=== PATIENT | male | born 1960 | race Caucasian/White ===

== ENCOUNTER 2022-07-13 17:52 | Inpatient (IN) | payer MEDICARE, SELFPAY ==
--- NOTE | ~2022-07-13 | US_ITS ---
EXAMINATION: US venous doppler UE LT DATE: 07/13/2022 20:32 INDICATION: Left arm swelling and pain TECHNIQUE: Grayscale ultrasound images without and with compression and Doppler ultrasound images of the left upper extremity veins were obtained. COMPARISON: None. FINDINGS: The visualized portions of the left internal jugular vein, subclavian vein, axillary vein, brachial v eins, basilic vein, cephalic vein, radial vein, and ulnar vein are patent. IMPRESSION: 1. No deep venous thrombosis. Reviewed, dictated and finalized at location K.
--- NOTE | ~2022-07-13 | XR_ITS ---
Clinical Indication: Tobacco dependence PA and lateral views of the chest: Comparison: None Findings: The lungs are clear, without evidence of focal consolidation or pleural effusion. Cardiome diastinal silhouette is within normal limits. Bones and soft tissues are unremarkable. Impression: Normal chest. Reviewed, dictated and finalized at location . Impression: Normal chest.
[2022-07-13 17:57] VITALS: BP 195/102; PULSE 90; RESP 18; TEMP 36.3; O2SAT 97
[2022-07-13 20:35] LABS: Basophils Percent Auto 0.3 % (0.2-1.2); Eosinophils Absolute Auto 0.2 K/mm3 (0-0.3); Eosinophils Percent Auto 1.9 % (0-4.4); Hematocrit 56.8 % (42.0-52.0); Hemoglobin 18.2 g/dL (14.0-18.0); Immature Granulocyte Absolute 0.06 K/mm3 (0.00-0.031); Immature Granulocyte Percent A 0.6 % (0-0.5); Lymphocytes Absolute Auto 2.31 K/mm3 (0.9-3.2); Lymphocytes Percent Auto 24.2 % (18.3-44.2); Mean Corpuscular Hemoglobin 30.2 pg (26-34); Mean Corpuscular Volume 94.2 fl (80-100); Mean Platelet Volume 10.4 fl (7.4-10.4); Monocytes Absolute Auto 0.7 K/mm3 (0.1-0.6); Monocytes Percent Auto 7.3 % (2.6-8.5); Neutrophils Absolute Auto 6.3 K/mm3 (1.3-6.7); Neutrophils Percent Auto 65.7 % (45.5-73.1); Platelet Count Result 257 k/mm3 (150-375); Red Blood Count 6.03 M/mm3 (4.6-6.20); Red Cell Distribution Width 14.4 % (11.5-14.5); White Blood Count 9.5 K/mm3 (4.5-10.0)
[2022-07-13 20:47] LABS: INR 0.9
[2022-07-13 20:48] LABS: Partial Thromboplastin Time 28.7 SECONDS (22.3-36.8)
[2022-07-13 20:50] VITALS: BP 198/115; PULSE 83; RESP 17; O2SAT 96
[2022-07-13 20:54] LABS: Alanine Aminotransferase 27 U/L (6-50); Albumin Level 3.9 g/dL (3.5-5.1); Alkaline Phosphatase 101 U/L (38-126); Anion Gap 7 mmol/L (8-16); Aspartate Amino Transferase 25 U/L (17-59); Bilirubin,Total 1.4 mg/dL (0.2-1.3); Blood Urea Nitrogen 10 mg/dL (9-20); Calcium 8.6 mg/dL (8.4-10.2); Carbon Dioxide 33 mmol/L (22-30); Chloride 96 mmol/L (98-107); Estimated CRCL calculation 82 ml/min; Estimated Glomerular Filt Rate > 60; Glucose 141 mg/dL (65-110); Potassium 3.6 mmol/L (3.4-5.0); Sodium 136 mmol/L (137-145)
--- NOTE | 2022-07-13 21:54 | ED.GENADULT ---
HPI - General Adult General Chief complaint: Extremity Problem,Nontraumatic Stated complaint: left hand swelling Time Seen by Provider: 07/13/22 20:58 History of Present Illness HPI narrative: Patient is a 62-year-old gentleman who presents emergency department with chief complaint of pain redness to the left upper extremity. Patient reports he is a diabetic and reports that he had a procedure in [facility] to remove a lesion in his left arm and then also had a lesion removed from his nose. Patient states that it was done by a plastic surgeon there and reports that his nose has opened up and has purulent drainage from it patient also noticed that his hand has become more swollen and has become red and tender to touch. Patient denies fluctuance denies discrete abscess Related Data Home Medications Medication Instructions Recorded Confirmed metformin 07/13/22 Allergies Allergy/AdvReac Type Severity Reaction Status Date / Time No Known Allergies Allergy Verified 07/13/22 22:08 Review of Systems Review of Systems: A 10 system review of systems was completed on the patient and is negative except for what is stated in the HPI. Nursing and ancillary documentation was reviewed. Exam Narrative: GENERAL: Well-appearing, well-nourished, and in no acute distress. HEAD: Normocephalic, atraumatic. EYES: PERRLA and EOMI. ENT: Nares clear, no rhinorrhea or epistaxis. Mucous membranes moist. There is a wound present on the tip of the nose that is open and has purulent drainage from NECK: Supple. CHEST: Clear to auscultation. No respiratory distress. HEART: Regular rate and rhythm. No murmur heard. Normal peripheral pulses. ABDOMEN: Soft, nontender, nondistended, normal active bowel sounds. EXTREMITIES: Normal range of motion. No edema. Left upper extremity there is redness and swelling of the dorsal aspect of the right forearm from the level of the wrist to mid forearm. It is tender to touch there is no fluctuance there is no crepitance SKIN: Warm, dry, no rash. NEURO: No focal deficits. Alert and oriented x3. PSYCH: Normal mood and affect. Course Vital Signs Vital signs: Vital Signs Temperature 36.3 C L 07/13/22 17:57 Pulse Rate 90 07/13/22 17:57 Respiratory Rate 18 07/13/22 17:57 Blood Pressure 195/102 H 07/13/22 17:57 Pulse Oximetry 97 05/08/23 17:57 Oxygen Delivery Room Air 07/13/22 17:57 Temperature 36.3 C L 07/13/22 17:57 Pulse Rate 83 07/13/22 20:50 Respiratory Rate 17 07/13/22 20:50 Blood Pressure 198/115 H 07/13/22 20:50 Pulse Oximetry 96 07/13/22 20:50 Oxygen Delivery Room Air 07/13/22 20:50 Medical Decision Making MDM Narrative Medical decision making narrative: Differential diagnosis includes cellulitis, DVT. Laboratory studies were obtained which showed a normal white blood cell count patient hemoglobin was elevated at 18. Electrolytes showed a glucose of 141 total bilirubin is 1.4 Venous duplex of left upper extremity showed no evidence of DVT. Patient is showing signs of infection of the wound on his nose that is dehisced and also there is redness and tenderness to palpation in the dorsum of the left forearm. This is most likely cellulitis Vital Signs Vital Signs: Vital Signs Temperature 36.3 C L 07/13/22 17:57 Pulse Rate 90 07/13/22 17:57 Respiratory Rate 18 07/13/22 17:57 Blood Pressure 195/102 H 07/13/22 17:57 Pulse Oximetry 97 07/13/22 17:57 Oxygen Delivery Room Air 07/13/22 17:57 Temperature 36.3 C L 07/13/22 17:57 Pulse Rate 83 07/13/22 20:50 Respiratory Rate 17 07/13/22 20:50 Blood Pressure 198/115 H 07/13/22 20:50 Pulse Oximetry 96 07/13/22 20:50 Oxygen Delivery Room Air 07/13/22 20:50 Lab Data 07/13/22 20:28 07/13/22 20:28 Labs: Lab Results 07/13/22 Range/Units 20:28 WBC 9.5 (4.5-10.0) K/mm3 RBC 6.03 (4.6-6.20) M/mm3 Hgb 1
[2022-07-13] MEDS: MORPHINE SULFATE (*CRX) 4 MG/ML INJ 2 MG IV PUSH (22:22)
[2022-07-13] MEDS: PIPERACILLN/TAZ 3.375GM/NS50ML 3.375 GM/50 ML BAG IVPB (22:55)
[2022-07-13 22:57] LABS: Lactic Acid Reflex 1.1 mmol/L (0.7-2.0)
[2022-07-13 23:01] VITALS: BP 178/95; PULSE 79; RESP 18; O2SAT 95
--- NOTE | 2022-07-13 23:18 | PM.IMHP ---
H&P: HPI History of Present Illness Date/Time: 07/13/22 23:18 Chief Complaint: left hand redness Narrative: This is a 62-year-old male with past medical history significant for hypertension, diabetes mellitus, tobacco dependence, patient smokes 2 packs of cigarettes daily. patient presents to the emergency room due to left upper extremity redness, warmth, tenderness, for 2-3 days duration recently had a skin lesion removed from the hand dorsum, had lesion removed from the nose as well and shows with wound dehiscence of the nose with purulent discharge. Patient denies any fevers, rigors, chills, nausea, vomiting, diarrhea, shortness of breath, cough, sputum production. [place] staying with his son who is helping with some work. preliminary workup was significant for venous Doppler of left upper extremity was reported as: EXAMINATION: US venous doppler UE DATE: 07/13/2022 20:32 INDICATION: Left arm swelling and pain TECHNIQUE: Grayscale ultrasound images without and with compression and Doppler ultrasound images of the left upper extremity veins were obtained. COMPARISON: None. FINDINGS: The visualized portions of the left internal jugular vein, subclavian vein, axillary vein, brachial veins, basilic vein, cephalic vein, radial vein, and ulnar vein are patent. IMPRESSION: 1.? No deep venous thrombosis. patient has been admitted for further evaluation management and treatment. Review of Systems Review of Systems: Left upper extremity redness, tenderness, nose wound dehiscence and purulent discharge Constitutional: Constitutional: Denies chills, Denies daytime sleepiness, Denies fever(s), Denies frequent falls, Denies night sweats and Denies poor appetite Eyes: Eyes: Denies change in vision ENT: Denies dysphagia, Denies odynophagia and Reports other ( nose wound dehiscence) Cardiovascular: Cardiovascular: Denies chest pain and Denies radiating jaw, neck or arm pain Respiratory: Respiratory: Denies chest congestion, Denies cough and Denies excessive phlegm production Gastrointestinal: Gastrointestinal: Denies abdominal pain, Denies dyspepsia, Denies heartburn, Denies diarrhea, Denies nausea and Denies vomiting Genitourinary: Genitourinary: Denies dysuria Musculoskeletal: Comments: left upper extremity swelling warmth tenderness Integumentary/Breasts: Skin/Breast: Reports erythema ( left upper extremity), Reports skin pain, Reports skin swelling and Reports wounds ( nose wound dehiscence) Neurologic: Denies focal weakness and Denies Sensory deficit (Neuro) Psychiatric: Psychiatric: Reports no additional psychiatric complaints and Reports as per HPI Endocrine: Endocrine: Denies cold intolerance, Denies flushing, Denies heat intolerance, Denies polyphagia, Denies polydipsia and Denies palpitations Hematologic/Lymphatic: Hematologic/Lymphatic: Reports no additional hematologic/lymphatic complaints and Reports as per HPI Allergic/Immunologic: Allergic/Immunologic: Reports no additional allergic/immunologic complaints and Reports as per HPI Meds Home Medications and Allergies Home Medications Medication Instructions Recorded Confirmed Type metformin 07/13/22 History amlodipine 5 mg tablet 5 mg PO DAILY 07/14/22 07/14/22 History Allergies Allergy/AdvReac Type Severity Reaction Status Date / Time No Known Allergies Allergy Verified 07/13/22 22:08 Vital Signs Vital Signs - 24 hr 07/13/22 17:57 07/13/22 20:50 07/13/22 23:01 Temperature 97.3 F L Pulse Rate 90 83 79 Respiratory Rate 18 17 18 Blood Pressure 195/102 H 198/115 H 178/95 H Pulse Oximetry 97 96 95 Oxygen Delivery Room Air Room Air Exam Narrative: patient is laying in a stretcher Const: General: comfortable, no acute distress, well developed, alert, awake and average body habitus Nutritional Appearance: average body habitus Orientation/consciousness: patient oriented
[2022-07-13 23:43] LABS: Glucose Point of Care 179 mg/dl (65-105)
[2022-07-14] VITALS (7 sets, daily range): BP systolic 151–192; BP diastolic 85–108; PULSE 70–81; RESP 16–20; TEMP 35.7–36.6; O2SAT 95–99
[2022-07-14] MEDS: amLODIPine BESYLATE 5 MG TABLET PO ×2 (00:50→08:51)
--- NOTE | 2022-07-14 01:02 | ADMGEN ---
This patient, Doroteo Merchant, was admitted to [facility] Surg Room 327-01. Patient/family oriented to hospital policies and general routines including ID bracelet, bed and alarms, visiting hours, pain management, procedures, bathroom and other care routines, personal items, smoking policy, room service/diet, and visiting hours. Information on how to activate the Rapid Response Team has been discussed. Patient/Family are encouraged to report perceived risks to care and to ask questions if they do not understand what they are told or what they should do.
[2022-07-14] MEDS: MORPHINE SULFATE (*CRX) 4 MG/ML INJ 2 MG IV PUSH ×2 (01:25→05:08)
[2022-07-14] MEDS: hydrALAZINE HCL 20 MG/ML VIAL 10 MG IV PUSH ×2 (02:36→21:19)
[2022-07-14] MEDS: PIPERACILLN/TAZ 3.375GM/NS50ML 3.375 GM/50 ML BAG IVPB ×4 (05:09→23:22)
[2022-07-14] MEDS: lisinopriL 20 MG TABLET 40 MG PO (05:09)
--- NOTE | 2022-07-14 06:17 | PC.NURSE ---
Pt has had high blood pressures since arrival to the floor from ER. Multiple medication administrations with no improvement. Latest medication administration at 0509, Lisinopril [address] Lora. Rechecked BP one hour later and it remained high at 192/101. Dr Lora was notified of newest blood pressure and questioned about new orders. No new orders at this time. Dr Lora requests to wait an additional hour and recheck blood pressure then. Will pass this information on to day shift RN in report.
[2022-07-14 06:39] LABS: Estimated CRCL calculation 99 ml/min; Estimated Glomerular Filt Rate > 60
[2022-07-14 07:31] LABS: Glucose Point of Care 192 mg/dl (65-105)
--- NOTE | 2022-07-14 07:43 | WPDCN ---
Assessment and Plan Assessment and plan (1) Cellulitis of nasal tip: Code(s): J34.0 - Abscess, furuncle and carbuncle of nose Status: Acute Assessment and Plan: Purulence cultured, likely gram positive organism, possible MRSA, recommend aggressive blood sugar management, gram positive/mrsa coverage iv while inpatient, mupirocin tid, large amount in each nostril and within the wound itself. Ok for diet. Will re examine this pm. No plan on closure at this time. HPI Data of Consult Date/Time: 07/14/22 07:43 Requesting Physician: Victor Hugo Lora MD Primary Care Provider: PHYSICIAN NOT ON STAFF Consult Narrative Reason for consult: Nasal infection Narrative: Doroteo Merchant is a 62 year old male s/p nasal skin cancer excision and recon last week at an OSH. Currently infected, wound dehisced. ENT consulted for further evaluation and treatment. Review of Systems Review of Systems: All systems reviewed & are unremarkable except as noted in HPI and below PMFSH Social History Social History Smoking status: Current every day smoker Tobacco type: cigarettes Lack of Transportation: No Lack of Food: Never True Current Housing: I Have Housing Concerned About Future Housing: No Difficulty Paying Gas/Electric Bills: No Difficulty Paying for Meds: No Currently Unemployed: No Education: Grade School Difficulty w/ Childcare or Family Care: No Spiritual care concerns: No Meds Home Medications and Allergies Home Medications Medication Instructions Recorded Confirmed Type metformin 07/13/22 History amlodipine 5 mg tablet 5 mg PO DAILY 07/14/22 07/14/22 History gabapentin 600 mg tablet 600 mg PO PRN PRN neuropathy 07/14/22 07/14/22 History (Neurontin) hydrochlorothiazide 25 mg tablet 25 mg PO DAILY 07/14/22 07/14/22 History Allergies Allergy/AdvReac Type Severity Reaction Status Date / Time No Known Allergies Allergy Verified 07/13/22 22:08 Vital Signs Vital Signs - 24 hr 07/13/22 17:57 07/13/22 20:50 07/13/22 23:01 Temperature 36.3 C L Pulse Rate 90 83 79 Respiratory Rate 18 17 18 Blood Pressure 195/102 H 198/115 H 178/95 H Pulse Oximetry 97 96 95 Oxygen Delivery Room Air Room Air 07/14/22 00:07 07/14/22 01:40 07/14/22 04:35 Temperature 36.6 C 36.5 C Pulse Rate 81 74 81 Respiratory Rate 17 16 20 Blood Pressure 170/93 H 187/97 H 192/96 H Pulse Oximetry 96 95 95 Oxygen Delivery 07/14/22 06:08 Temperature 36.3 C L Pulse Rate 79 Respiratory Rate 16 Blood Pressure 192/101 H Pulse Oximetry 96 Oxygen Delivery Exam Narrative: several cm dehisced wound left nasal ala and tip, almost through and through, infectious crust/debris intranasal as well. Results Labs 07/13/22 20:28 07/14/22 06:16 Labs: Short CBC 07/13/22 Range/Units 20:28 WBC 9.5 (4.5-10.0) K/mm3 Hgb 18.2 H (14.0-18.0) g/dL Hct 56.8 H (42.0-52.0) % Plt Count 257 (150-375) k/mm3 BMP 07/13/22 07/14/22 20:28 06:16 Sodium 136 L Potassium 3.6 Chloride 96 L Carbon Dioxide 33 H BUN 10 Creatinine 1.10 0.90 Glucose 141 H Calcium 8.6 Liver Function 07/13/22 Range/Units 20:28 Total Bilirubin 1.4 H (0.2-1.3) mg/dL AST 25 (17-59) U/L ALT 27 (6-50) U/L Alkaline Phosphatase 101 (38-126) U/L Albumin 3.9 (3.5-5.1) g/dL
[2022-07-14] MEDS: ENOXAPARIN 40 MG/0.4 ML SYRINGE SUB-Q (08:51)
[2022-07-14] MEDS: MUPIROCIN 2% OINT 22 GM TUBE 1 APPLIC XX ×3 (08:51→17:22)
[2022-07-14] MEDS: oxyCODONE/ACETAMINOPHEN (*CRX) 5-325 MG TABLET 1 TABLET PO ×3 (10:24→23:22)
--- NOTE | 2022-07-14 11:41 | PM.IMPN ---
Progress Note: A&P Assessment and Plan (1) Cellulitis of arm, left: Code(s): L03.114 - Cellulitis of left upper limb Status: Acute Assessment and Plan: admit to regular medical floor recent surgical procedure to remove daughter son of the hand lesion started on Zosyn and vancomycin cultures in progress (2) Dehiscence of wound of skin: Qualifiers: Encounter type: initial encounter Qualified Code(s): T81.30XA - Disruption of wound, unspecified, initial encounter Code(s): T81.30XA - Disruption of wound, unspecified, initial encounter Status: Acute Assessment and Plan: on vancomycin and Zosyn ENT consult supportive care local care (3) Diabetes: Code(s): E11.9 - Type 2 diabetes mellitus without complications Status: Acute Assessment and Plan: holding metformin insulin sliding scale as needed Accu-Cheks AC and HS carb consistent diet (4) Tobacco dependence: Code(s): F17.200 - Nicotine dependence, unspecified, uncomplicated Status: Acute Assessment and Plan: nicotine patch as needed Subjective Date/time seen: 07/14/22 11:41 Interval history: No complaints Exam Narrative: patient is laying in a stretcher Const: General: comfortable, no acute distress, well developed, alert, awake and average body habitus Nutritional Appearance: average body habitus Orientation/consciousness: patient oriented x3 HENMT: Head: normal to inspection, normocephalic and atraumatic Ears: hearing grossly normal bilaterally Face/Nose/Sinus: Abnormal external nose present nasal laceration, nasal erythema and other ( wound dehiscence purulent discharge) and normal facial exam Face and sinus: normal facial exam Eyes: General: appearance normal, both eyes and all related structures Pupils: Equal, round and reactive pupils present EOM: EOMs intact bilaterally Neck: Neck: full ROM, no lymphadenopathy and no JVD Thyroid: thyroid normal Lymphatic: no lymphadenopathy noted Resp: Effort & Inspection: normal respiratory effort and able to speak in complete sentences Auscultation: clear to auscultation bilaterally Cardio: Jugular venous distension: no JVD Rate: regular rate Rhythm: regular rhythm Heart sounds: S1 normal heart sound present and S2 normal heart sound present : General: Yes deferred Skin: General skin exam: rashes Rashes: rashes noted left distal forearm color other ( erythema) and tender Wounds: no wounds Neuro: General: patient oriented x3 and CN's II-XI intact bilaterally Cranial nerves: Yes CN's II-XII intact bilaterally and Yes Equal, round and reactive pupils present Cognition (Neuro): normal cognition Speech: normal speech Gait exam (Neuro): Normal gait present Motor exam (neuro): 5/5 motor strength present throughout Sensory Exam: No Sensory deficit (Neuro) Extrem: General: normal to inspection, full ROM, no joint enlargement and no pedal edema Left upper extremity: edema, elbow/forearm tenderness, swelling, warmth and other ( erythema) and hand tenderness, warmth and swelling Objective Data Vital Signs Vital Signs: Vital Signs - 24 hr 07/13/22 17:57 07/13/22 20:50 07/13/22 23:01 Temperature 97.3 F L Pulse Rate 90 83 79 Respiratory Rate 18 17 18 Blood Pressure 195/102 H 198/115 H 178/95 H Pulse Oximetry 97 96 95 Oxygen Delivery Room Air Room Air 07/14/22 00:07 07/14/22 01:40 07/14/22 04:35 Temperature 98 F 97.7 F Pulse Rate 81 74 81 Respiratory Rate 17 16 20 Blood Pressure 170/93 H 187/97 H 192/96 H Pulse Oximetry 96 95 95 Oxygen Delivery 07/14/22 06:08 Temperature 97.3 F L Pulse Rate 79 Respiratory Rate 16 Blood Pressure 192/101 H Pulse Oximetry 96 Oxygen Delivery Intake/Output Intake/Output: Intake & Output 07/11/22 07/12/22 07/13/22 07/14/22 23:59 23:59 23:59 23:59 Intake Total 50 572 Output Total 250 Balance 50 322 Meds/Results Medications:
[2022-07-14 11:46] LABS: Glucose Point of Care 176 mg/dl (65-105)
[2022-07-14] MEDS: hydroCHLOROthiazide 25 MG TABLET PO (12:04)
[2022-07-14 14:59] LABS: Appearance Urine Clear (Clear); Bacteria Urine None Seen /hpf; Bilirubin Urine Negative (Negative); Blood Urine Negative (Negative); Color Urine Yellow (Yellow); Glucose Urine UA Negative (Negative); Ketones Urine Negative (Negative); Leukocyte Esterase Ur Negative LEU/UL (Negative); Nitrate Urine Negative (Negative); Non Pathogenic Casts 0-2; Protein Urine 2+ mg/dL (Negative); RBC Urine 0-2 /hpf (0-2); Specific Grav Ur 1.019 (1.001-1.035); Squamous Epithelial Cell Urine None seen /hpf (Few); WBC Urine 0-5 /hpf; pH Urine 5.5 (5.0-9.0)
[2022-07-14 15:03] LABS: Add Urine Microscopic? YES
[2022-07-14 16:24] LABS: Glucose Point of Care 188 mg/dl (65-105)
[2022-07-14] MEDS: NICOTINE (*PBKC) 14 MG PATCH 1 PATCH TRANSDERM (18:43)
[2022-07-14] MEDS: MORPHINE SULFATE (*CRX) 2 MG/ML INJ IV PUSH (21:21)
[2022-07-15 00:10] VITALS: BP 155/93; PULSE 78
[2022-07-15 04:11] LABS: Glucose Point of Care 171 mg/dl (65-105)
[2022-07-15] MEDS: PIPERACILLN/TAZ 3.375GM/NS50ML 3.375 GM/50 ML BAG IVPB ×4 (05:00→23:39)
[2022-07-15 05:35] VITALS: BP 162/82; PULSE 75; RESP 18; TEMP 35.7; O2SAT 96
[2022-07-15] MEDS: oxyCODONE/ACETAMINOPHEN (*CRX) 5-325 MG TABLET 1 TABLET PO ×2 (05:41→17:13)
[2022-07-15 07:41] LABS: Glucose Point of Care 181 mg/dl (65-105)
[2022-07-15 07:48] LABS: Estimated CRCL calculation 99 ml/min; Estimated Glomerular Filt Rate > 60
[2022-07-15] MEDS: amLODIPine BESYLATE 5 MG TABLET PO (07:58)
[2022-07-15] MEDS: MUPIROCIN 2% OINT 22 GM TUBE 1 APPLIC XX ×3 (07:58→17:11)
[2022-07-15] MEDS: ENOXAPARIN 40 MG/0.4 ML SYRINGE SUB-Q (07:58)
[2022-07-15] MEDS: hydroCHLOROthiazide 25 MG TABLET PO (07:58)
[2022-07-15] MEDS: MORPHINE SULFATE (*CRX) 2 MG/ML INJ IV PUSH ×2 (08:00→18:20)
[2022-07-15] MEDS: ONDANSETRON INJ 4 MG/2 ML VIAL IV PUSH (09:07)
[2022-07-15] MEDS: GABAPENTIN 300 MG CAPSULE 600 MG PO ×3 (10:17→20:10)
[2022-07-15 11:30] LABS: Glucose Point of Care 224 mg/dl (65-105)
[2022-07-15 11:37] LABS: Vancomycin Trough 16.8 ug/mL (10.0-20.0)
[2022-07-15] MEDS: INSULIN ASPART (*BKC) 100 UNITS/ML 6 UNITS SUB-Q (11:38)
--- NOTE | 2022-07-15 13:20 | PCCCNOTE ---
On 07/15/22, the student, [Estela Anderson], provided care and completed [facility] documentation on this patient. I have reviewed the student's documentation and agree with the findings.
[2022-07-15 14:00] VITALS: BP 174/92; PULSE 74; RESP 16; TEMP 35.9; O2SAT 96
[2022-07-15] MEDS: ALPRAZolam (*CRX) 0.25 MG TABLET PO (14:38)
[2022-07-15 16:43] LABS: Glucose Point of Care 160 mg/dl (65-105)
--- NOTE | 2022-07-15 17:27 | WPDPN ---
Progress Note: A&P Assessment and Plan (1) Cellulitis of arm, left: Code(s): L03.114 - Cellulitis of left upper limb Status: Acute Assessment and Plan: admit to regular medical floor recent surgical procedure to remove daughter son of the hand lesion started on Zosyn and vancomycin cultures in progress 07/15/2022 interval history: 62-year-old male with a nostril abscess seen by ENT suspect staph infection possibly MRSA patient is being treated with Zosyn and vancomycin blood and wound cultures are the pending, patient states is quite anxious in the hospital unable to relax, will give the patient xanax 0.25mg every 8 hours as needed and monitor (2) Dehiscence of wound of skin: Qualifiers: Encounter type: initial encounter Qualified Code(s): T81.30XA - Disruption of wound, unspecified, initial encounter Code(s): T81.30XA - Disruption of wound, unspecified, initial encounter Status: Acute Assessment and Plan: on vancomycin and Zosyn ENT consult supportive care local care (3) Diabetes: Code(s): E11.9 - Type 2 diabetes mellitus without complications Status: Acute Assessment and Plan: holding metformin insulin sliding scale as needed Accu-Cheks AC and HS carb consistent diet (4) Tobacco dependence: Code(s): F17.200 - Nicotine dependence, unspecified, uncomplicated Status: Acute Assessment and Plan: nicotine patch as needed Subjective Date/time seen: 07/15/22 17:27 Interval history: 07/15/2022 interval history: 62-year-old male with a nostril abscess seen by ENT suspect staph infection possibly MRSA patient is being treated with Zosyn and vancomycin blood and wound cultures are the pending, patient states is quite anxious in the hospital unable to relax, will give the patient xanax 0.25mg every 8 hours as needed and monitor Review of Systems Review of Systems: All systems reviewed & are unremarkable except as noted in HPI and below Exam Narrative: Morbidly obese Patient is comfortable, NAD HEENT: eyes are clear and none icteric, wound is located anterior nostril LUNGS: Normal respiratory effort ABD: Distended Lower extremities: no edema SKIN: nonjaundiced Neuro: grossly intact. Objective Data Vital Signs Vital Signs: Vital Signs - 24 hr 07/14/22 20:00 07/14/22 20:54 07/15/22 00:10 Temperature 96.9 F L Pulse Rate 70 81 78 Respiratory Rate 16 16 Blood Pressure 184/108 H 155/93 H Pulse Oximetry 99 97 Oxygen Delivery Room Air 07/15/22 05:35 07/15/22 08:00 07/15/22 14:00 Temperature 96.2 F L 96.6 F L Pulse Rate 75 74 Respiratory Rate 18 16 Blood Pressure 162/82 H 174/92 H Pulse Oximetry 96 96 Oxygen Delivery Room Air Intake/Output Intake/Output: Intake & Output 07/12/22 07/13/22 07/14/22 07/15/22 23:59 23:59 23:59 23:59 Intake Total 50 2152 1690 Output Total 1625 225 Balance 50 527 1465 Meds/Results Medications: Active Medications Generic Name Dose Route Start Last Admin Trade Name Freq PRN Reason Stop Dose Admin Alprazolam 0.25 mg 07/15/22 14:07 07/15/22 14:38 Alprazolam (*Crx) 0.25 Mg Tablet PO 0.25 mg Q8HR PRN Administration Anxiety Amlodipine Besylate 5 mg 07/14/22 09:00 07/15/22 07:58 Amlodipine Besylate 5 Mg Tablet PO 5 mg DAILY HIEU Administration Enoxaparin Sodium 40 mg 07/14/22 09:00 07/15/22 07:58 Enoxaparin 40 Mg/0.4 Ml Syringe SUB-Q 40 mg DAILY HIEU Administration Gabapentin 600 mg 07/15/22 13:00 07/15/22 17:11 Gabapentin 300 Mg Capsule PO 600 mg QID HIEU Administration Hydralazine HCl 10 mg 07/14/22 02:23 07/14/22 21:19 Hydralazine Hcl 20 Mg/Ml Vial IV PUSH 10 mg Q6H PRN Administration Blood Pressure - High Hydrochlorothiazide 25 mg 07/14/22 09:00 07/15/22 07:58 Hydrochlorothiazide 25 Mg Tablet PO 25 mg DAILY HIEU Administration Piperacillin/Tazobactam/Dext
[2022-07-15 20:00] VITALS: O2SAT 94
[2022-07-15 20:20] LABS: Glucose Point of Care 128 mg/dl (65-105)
[2022-07-15 20:26] VITALS: BP 154/82; PULSE 76; RESP 18; TEMP 36.4; O2SAT 94
[2022-07-16] MEDS: PIPERACILLN/TAZ 3.375GM/NS50ML 3.375 GM/50 ML BAG IVPB ×3 (05:21→17:13)
[2022-07-16 05:22] VITALS: BP 140/77; PULSE 82; RESP 16; TEMP 36.6; O2SAT 91
[2022-07-16 07:25] LABS: Estimated CRCL calculation 49 ml/min; Estimated Glomerular Filt Rate 36
[2022-07-16 07:35] LABS: Glucose Point of Care 144 mg/dl (65-105)
--- NOTE | 2022-07-16 07:54 | PM.PNGS ---
Progress Note: A&P Assessment and Plan (1) Cellulitis of nasal tip: Code(s): J34.0 - Abscess, furuncle and carbuncle of nose Status: Acute Assessment and Plan: Please in for smoking cessation, discharged on appropriate gram-positive coverage/culture driven antibiotics. Mupirocin 4-6 times per day within the wound itself as well as within the left nasal passage deep, as far as he can get with this finger tip large amount. Follow-up next week please them call the office he will try to close the wound in office. Subjective Subjective Date/Time Seen: 07/16/22 07:54 Interval history: Feeling better Review of Systems Review of Systems: All systems reviewed & are unremarkable except as noted in HPI and below Exam Narrative: nasal dehiscence present no more purulence overall healing better less erythema less edema less pain to palpation. Objective Data Vital Signs Vital Signs: Vital Signs - 24 hr 07/15/22 08:00 07/15/22 14:00 07/15/22 20:26 Temperature 35.9 C L 36.4 C Pulse Rate 74 76 Respiratory Rate 16 18 Blood Pressure 174/92 H 154/82 H Pulse Oximetry 96 94 Oxygen Delivery Room Air 07/15/22 20:00 07/16/22 05:22 Temperature 36.6 C Pulse Rate 82 Respiratory Rate 16 Blood Pressure 140/77 Pulse Oximetry 94 91 Oxygen Delivery Room Air Intake/Output Intake/Output: Intake & Output 07/13/22 07/14/22 07/15/22 07/16/22 23:59 23:59 23:59 23:59 Intake Total 50 2152 2362 50 Output Total 1625 475 Balance 50 527 1887 50 Meds/Results Medications: Active Medications Generic Name Dose Route Start Last Admin Trade Name Freq PRN Reason Stop Dose Admin Alprazolam 0.25 mg 07/15/22 14:07 07/15/22 14:38 Alprazolam (*Crx) 0.25 Mg Tablet PO 0.25 mg Q8HR PRN Administration Anxiety Amlodipine Besylate 5 mg 07/14/22 09:00 07/15/22 07:58 Amlodipine Besylate 5 Mg Tablet PO 5 mg DAILY HIEU Administration Enoxaparin Sodium 40 mg 07/14/22 09:00 07/15/22 07:58 Enoxaparin 40 Mg/0.4 Ml Syringe SUB-Q 40 mg DAILY HIEU Administration Gabapentin 600 mg 07/15/22 13:00 07/15/22 20:10 Gabapentin 300 Mg Capsule PO 600 mg QID HIEU Administration Hydralazine HCl 10 mg 07/14/22 02:23 07/14/22 21:19 Hydralazine Hcl 20 Mg/Ml Vial IV PUSH 10 mg Q6H PRN Administration Blood Pressure - High Hydrochlorothiazide 25 mg 07/14/22 09:00 07/15/22 07:58 Hydrochlorothiazide 25 Mg Tablet PO 25 mg DAILY HIEU Administration Piperacillin/Tazobactam/Dextrose 3.375 gm in 50 mls @ 100 mls/hr 07/14/22 06:00 07/16/22 05:21 Zosyn 3.375 Gm/Ns 50 Ml IVPB 100 mls/hr Q6H HIEU Administration Vancomycin HCl 1,500 mg in 500 mls @ 250 mls/hr 07/14/22 12:00 07/16/22 00:10 Vancomycin 1,500 Mg/D5w 500 Ml IVPB 250 mls/hr Q12H HIEU Administration Insulin Aspart 6 units 07/14/22 08:00 07/15/22 17:12 Insulin Aspart (*Bkc) 100 Units/Ml 0.05 units/kg (6 units) Not Given SUB-Q TIDWM [facility] Morphine Sulfate 2 mg 07/14/22 10:19 07/15/22 18:20 Morphine Sulfate (*Crx) 2 Mg/Ml Inj IV PUSH 2 mg Q2H PRN Administration Pain Rated 7-10 Mupirocin 1 applic 07/14/22 09:00 07/15/22 17:11 Mupirocin 2% Oint 22 Gm Tube XX 1 applic TID HIEU Administration Nicotine 1 patch 07/14/22 17:50 07/15/22 07:58 Nicotine (*Pbkc) 14 Mg Patch TRANSDERM Not Given QAM [facility] Ondansetron HCl 4 mg 07/13/22 22:16 07/15/22 09:07 Ondansetron Inj 4 Mg/2 Ml Vial IV PUSH 4 mg Q4H PRN Administration Nausea Oxycodone/Acetaminophen 1 tablet 07/14/22 10:16 07/15/22 17:13 Oxycodone/Acetaminophen (*Crx) 5-325 Mg Tablet PO 1 tablet Q6HR PRN Administration Pain Rated 4-6 Radiology Results: ITS Impressions Venous Doppler Study 07/13/22 20:44 IMPRESSION: 1. No deep venous thrombosis. Chest X-Ray 07/14/22 05:36 Impression: Normal chest. Labs Labs: Laboratory Results
[2022-07-16] MEDS: INSULIN ASPART (*BKC) 100 UNITS/ML 6 UNITS SUB-Q ×3 (08:42→17:13)
[2022-07-16] MEDS: GABAPENTIN 300 MG CAPSULE 600 MG PO ×4 (08:43→20:22)
[2022-07-16] MEDS: ENOXAPARIN 40 MG/0.4 ML SYRINGE SUB-Q (08:43)
[2022-07-16] MEDS: hydroCHLOROthiazide 25 MG TABLET PO (08:43)
[2022-07-16] MEDS: amLODIPine BESYLATE 5 MG TABLET PO (08:44)
[2022-07-16] MEDS: MUPIROCIN 2% OINT 22 GM TUBE 1 APPLIC XX ×3 (08:44→17:14)
[2022-07-16] MEDS: oxyCODONE/ACETAMINOPHEN (*CRX) 5-325 MG TABLET 1 TABLET PO ×2 (08:46→20:22)
[2022-07-16 11:00] LABS: Hematocrit 52.2 % (42.0-52.0); Hemoglobin 16.8 g/dL (14.0-18.0); Mean Corpuscular HGB Conc 32.2 g/dl (32-36); Mean Corpuscular Hemoglobin 30.4 pg (26-34); Mean Corpuscular Volume 94.6 fl (80-100); Platelet Count Result 220 k/mm3 (150-375); Red Blood Count 5.52 M/mm3 (4.6-6.20); Red Cell Distribution Width 14.5 % (11.5-14.5); White Blood Count 8.7 K/mm3 (4.5-10.0)
[2022-07-16 11:14] LABS: Alanine Aminotransferase 22 U/L (6-50); Albumin Level 3.3 g/dL (3.5-5.1); Alkaline Phosphatase 73 U/L (38-126); Aspartate Amino Transferase 22 U/L (17-59); Bilirubin,Total 0.9 mg/dL (0.2-1.3); Blood Urea Nitrogen 14 mg/dL (9-20); Calcium 8.5 mg/dL (8.4-10.2); Carbon Dioxide > 40 mmol/L (22-30); Chloride 90 mmol/L (98-107); Estimated CRCL calculation 44 ml/min; Estimated Glomerular Filt Rate 32; Glucose 157 mg/dL (65-110); Magnesium 1.9 mg/dL (1.6-2.3); Potassium 3.8 mmol/L (3.4-5.0); Sodium 131 mmol/L (137-145)
[2022-07-16 11:36] LABS: Glucose Point of Care 143 mg/dl (65-105)
[2022-07-16 11:40] LABS: Vancomycin Trough 26.2 ug/mL (10.0-20.0)
[2022-07-16] MEDS: MORPHINE SULFATE (*CRX) 2 MG/ML INJ IV PUSH (13:16)
[2022-07-16 14:00] VITALS: BP 146/77; PULSE 74; RESP 16; TEMP 36.2; O2SAT 93
--- NOTE | 2022-07-16 15:24 | WPDPN ---
Progress Note: A&P Assessment and Plan (1) Cellulitis of arm, left: Code(s): L03.114 - Cellulitis of left upper limb Status: Acute Assessment and Plan: admit to regular medical floor recent surgical procedure to remove daughter son of the hand lesion started on Zosyn and vancomycin cultures in progress 07/16/2022 interval history: 62-year-old male with a nostril abscess seen by ENT suspect staph infection possibly MRSA, nasal wound is growing Staph aureus, sensitivities pending, patient is being treated with Zosyn and vancomycin blood and wound cultures are the pending, patient states is quite anxious in the hospital unable to relax, will give the patient xanax 0.25mg every 8 hours as needed and monitor, patient seen by ENT patient clinical symptoms are improving, will reassess tomorrow and possibly discharge patient home on oral antibiotics. (2) Dehiscence of wound of skin: Qualifiers: Encounter type: initial encounter Qualified Code(s): T81.30XA - Disruption of wound, unspecified, initial encounter Code(s): T81.30XA - Disruption of wound, unspecified, initial encounter Status: Acute Assessment and Plan: on vancomycin and Zosyn ENT consult supportive care local care (3) Diabetes: Code(s): E11.9 - Type 2 diabetes mellitus without complications Status: Acute Assessment and Plan: holding metformin insulin sliding scale as needed Accu-Cheks AC and HS carb consistent diet (4) Tobacco dependence: Code(s): F17.200 - Nicotine dependence, unspecified, uncomplicated Status: Acute Assessment and Plan: nicotine patch as needed Subjective Date/time seen: 07/16/22 15:24 Interval history: 07/16/2022 interval history: 62-year-old male with a nostril abscess seen by ENT suspect staph infection possibly MRSA, nasal wound is growing Staph aureus, sensitivities pending, patient is being treated with Zosyn and vancomycin blood and wound cultures are the pending, patient states is quite anxious in the hospital unable to relax, will give the patient xanax 0.25mg every 8 hours as needed and monitor, patient seen by ENT patient clinical symptoms are improving, will reassess tomorrow and possibly discharge patient home on oral antibiotics. Review of Systems Review of Systems: Left upper extremity redness, tenderness, nose wound dehiscence and purulent discharge Exam Narrative: Morbidly obese Patient is comfortable, NAD HEENT: eyes are clear and none icteric, wound is located anterior nostril LUNGS: Normal respiratory effort ABD: Distended Lower extremities: no edema SKIN: nonjaundiced Neuro: grossly intact. Objective Data Vital Signs Vital Signs: Vital Signs - 24 hr 07/15/22 20:26 07/15/22 20:00 07/16/22 05:22 Temperature 97.6 F 97.9 F Pulse Rate 76 82 Respiratory Rate 18 16 Blood Pressure 154/82 H 140/77 Pulse Oximetry 94 94 91 Oxygen Delivery Room Air 07/16/22 08:00 07/16/22 14:00 Temperature 97.2 F L Pulse Rate 74 Respiratory Rate 16 Blood Pressure 146/77 H Pulse Oximetry 93 Oxygen Delivery Room Air Intake/Output Intake/Output: Intake & Output 07/13/22 07/14/22 07/15/22 07/16/22 23:59 23:59 23:59 23:59 Intake Total 50 2152 2362 940 Output Total 1625 475 Balance 50 527 1887 940 Meds/Results Medications: Active Medications Generic Name Dose Route Start Last Admin Trade Name Freq PRN Reason Stop Dose Admin Alprazolam 0.25 mg 07/15/22 14:07 07/15/22 14:38 Alprazolam (*Crx) 0.25 Mg Tablet PO 0.25 mg Q8HR PRN Administration Anxiety Amlodipine Besylate 5 mg 07/14/22 09:00 07/16/22 08:44 Amlodipine Besylate 5 Mg Tablet PO 5 mg DAILY HIEU Administration Enoxaparin Sodium 40 mg 07/14/22 09:00 07/16/22 08:43 Enoxaparin 40 Mg/0.4 Ml Syringe SUB-Q 40 mg DAILY HIEU Administration Gabapentin 600 mg 07/15/22 13:00 07/16/22 12:55
[2022-07-16 16:41] LABS: Glucose Point of Care 110 mg/dl (65-105)
[2022-07-16] MEDS: ALPRAZolam (*CRX) 0.25 MG TABLET PO (17:23)
[2022-07-16 22:00] VITALS: BP 144/74; PULSE 74; RESP 18; TEMP 36.4; O2SAT 94
[2022-07-16 23:37] LABS: Glucose Point of Care 203 mg/dl (65-105)
[2022-07-17] MEDS: PIPERACILLN/TAZ 3.375GM/NS50ML 3.375 GM/50 ML BAG IVPB ×2 (00:08→06:21)
[2022-07-17] MEDS: oxyCODONE/ACETAMINOPHEN (*CRX) 5-325 MG TABLET 1 TABLET PO (06:21)
[2022-07-17 06:50] VITALS: BP 181/99; PULSE 75; RESP 18; TEMP 36.2; O2SAT 94
[2022-07-17 08:20] LABS: Glucose Point of Care 156 mg/dl (65-105)
[2022-07-17] MEDS: amLODIPine BESYLATE 5 MG TABLET PO (08:33)
[2022-07-17] MEDS: INSULIN ASPART (*BKC) 100 UNITS/ML 6 UNITS SUB-Q (08:33)
[2022-07-17] MEDS: GABAPENTIN 300 MG CAPSULE 600 MG PO (08:33)
[2022-07-17] MEDS: ENOXAPARIN 40 MG/0.4 ML SYRINGE SUB-Q (08:34)
[2022-07-17] MEDS: MUPIROCIN 2% OINT 22 GM TUBE 1 APPLIC XX (08:34)
[2022-07-17] MEDS: hydroCHLOROthiazide 25 MG TABLET PO (08:34)
--- NOTE | 2022-07-17 10:31 | PM.DS ---
DS: Admitting Diagnosis Discharge Date 07/17/2022 Admitting Diagnosis left hand redness DS: Discharge Diagnosis Discharge Diagnosis (1) Cellulitis of arm, left: Code(s): L03.114 - Cellulitis of left upper limb Status: Acute Assessment and Plan: admit to regular medical floor recent surgical procedure to remove daughter son of the hand lesion started on Zosyn and vancomycin cultures in progress 07/16/2022 interval history: 62-year-old male with a nostril abscess seen by ENT suspect staph infection possibly MRSA, nasal wound is growing Staph aureus, sensitivities pending, patient is being treated with Zosyn and vancomycin blood and wound cultures are the pending, patient states is quite anxious in the hospital unable to relax, will give the patient xanax 0.25mg every 8 hours as needed and monitor, patient seen by ENT patient clinical symptoms are improving, will reassess tomorrow and possibly discharge patient home on oral antibiotics. (2) Dehiscence of wound of skin: Qualifiers: Encounter type: initial encounter Qualified Code(s): T81.30XA - Disruption of wound, unspecified, initial encounter Code(s): T81.30XA - Disruption of wound, unspecified, initial encounter Status: Acute Assessment and Plan: on vancomycin and Zosyn ENT consult supportive care local care (3) Diabetes: Code(s): E11.9 - Type 2 diabetes mellitus without complications Status: Acute Assessment and Plan: holding metformin insulin sliding scale as needed Accu-Cheks AC and HS carb consistent diet (4) Tobacco dependence: Code(s): F17.200 - Nicotine dependence, unspecified, uncomplicated Status: Acute Assessment and Plan: nicotine patch as needed DS: Summary Hospital Course Reason for hospitalization: Chief Complaint: ? left hand redness Narrative: ?This is a 62-year-old male with past medical history significant for hypertension, diabetes mellitus, tobacco dependence, patient smokes 2 packs of cigarettes daily. patient presents to the emergency room due to left upper extremity redness, warmth, tenderness, for 2-3 days duration recently had a skin lesion removed from the hand dorsum, had lesion removed from the nose as well and shows with wound dehiscence of the nose with purulent discharge.? Patient denies any fevers, rigors, chills, nausea, vomiting, diarrhea, shortness of breath, cough, sputum production.? [place] staying with his son who is helping with some work. preliminary workup was significant for venous Doppler of left upper extremity was reported as: Hospital Course: 62-year-old male with a nostril abscess seen by ENT suspect staph infection possibly MRSA, nasal wound is growing Staph aureus, sensitivities pending,? patient is being treated with Zosyn and vancomycin blood and wound cultures are the pending, patient states is quite anxious in the hospital unable to relax, will give the patient xanax 0.25mg every 8 hours as needed and monitor, patient seen by ENT patient clinical symptoms are improving, will reassess tomorrow and possibly discharge patient home on oral antibiotics. Patient clinically symptoms have improved patient wound culture showed Staph aureus not MRSA, blood cultures no growth so far, will discharge the patient Augmentin 500 mg t.i.d. for 10 days, patient instructed to follow up with Dr. Caba as soon as possible. And if any symptoms worsen to go to nearest emergency depart Time Spent with Patient Time attestation: Total time spent providing and/or coordinating discharge services: Exam Narrative: Morbidly obese Patient is comfortable, NAD HEENT: eyes are clear and none icteric, wound is located anterior nostril LUNGS: Normal respiratory effort ABD: Distended Lower extremities: no edema SKIN: nonjaundiced Neuro: grossly intact. DS: Data Data Completed and Pending Labs on day of d
--- NOTE | 2022-07-17 11:18 | PC.NURSE ---
Pt is A&O 6 male who has participated and contributed in plan of care. Pt has had no reports of pain this shift. Pt does not express any needs at this time. Pt had new IV placed to receive IV antibiotics this AM. IV will be removed prior to discharge. Will continue to monitor pt. Pt discharging home with self care.
--- NOTE | 2022-07-20 11:35 | PC.NURSE ---
patient called to say that swelling in arm was worsening. Patient advised to come back to the ER.
== END 2022-07-17 11:50 | disposition home or self-care (01) | DRG 920 ==
LOC: ANHED 22:20 → ANH3MEDSUR 07-14 00:14
PROVIDERS: Admitting Provider Internal Medicine; Emergency Provider Emergency Medicine; Visit Provider Family Medicine
DX: T81.30XA Disruption of wound, unspecified, initial encounter (principal); L03.114 Cellulitis of left upper limb; E11.628 Type 2 diabetes mellitus with other skin complications; J34.0 Abscess, furuncle and carbuncle of nose; B95.61 Methicillin susceptible Staphylococcus aureus infection as the cause of diseases classified elsewhere; F41.9 Anxiety disorder, unspecified; F17.210 Nicotine dependence, cigarettes, uncomplicated; I10 Essential (primary) hypertension; Z79.84 Long term (current) use of oral hypoglycemic drugs
CPT/HCPCS: 36415; 71046; 80053; 80202; 81001; 82565; 82948; 83605; 83735; 85025; 85027; 85610; 85730; 87040; 87070; 87147; 87181; 87186; 87205; 93971; 96365; 96366; 96372; 96375; 96376; 99285; A9270; G0378; J0360; J1650; J1815; J2270; J2405; J2543; J3370